=== PATIENT | female | born 1955 | race Two or more races ===

== ENCOUNTER 2020-10-18 18:59 | Emergency (ER) | payer OTHER ==
[~2020-10-18] VITALS: Ht 165.1 cm; Wt 93.0 kg
[2020-10-18 19:00] VITALS: BP 0/0
== END 2020-10-19 06:10 ==
LOC: ER 18:59 → EDBD 18:59 → ER 10-19 06:10
DX: I46.9 Cardiac arrest, cause unspecified (principal)
CPT/HCPCS: 31500; 92950